=== PATIENT | female | born 1955 | race Caucasian/White ===

== ENCOUNTER 2018-11-26 10:25 | Emergency (ER) | payer MEDICAID ==
[2018-11-26] MEDS: GUAIFENESIN/DM (SR) TAB PO (12:11)
[2018-11-26] MEDS: IBUPROFEN 200 MG TAB PO (13:11)
== END 2018-11-26 13:15 | disposition home or self-care (01) ==
LOC: FTE 10:25
DX: R05 Cough (principal); H66.003 Acute suppurative otitis media without spontaneous rupture of ear drum, bilateral; E11.9 Type 2 diabetes mellitus without complications; I10 Essential (primary) hypertension
CPT/HCPCS: 71046; 99283-25